=== PATIENT | male | born 1960 | race Caucasian/White ===

== ENCOUNTER 2024-06-17 10:02 | Emergency (ER) | payer BC ==
--- NOTE | 2024-06-17 11:48 | RAD REPORT ---
EXAM: XR Hand Left 3 View HISTORY: [facility] MAIN hand injury Bed Name: 15 COMPARISON: None TECHNIQUE: 3 radiographic views of the RIGHT hand submitted. FINDINGS: Mildly displaced fractures at the bases of the third, fourth, and fifth proximal phalanges. Some comminution noted and possible intra-articular extension along the base of the fifth digit proximal phalanx. Listhesis at the base of the first metatarsal. Mild degenerative changes throughout the carpus. Joint alignment is otherwise maintained. Pronounced soft tissue swelling especially along the dorsum of the hand. Mild scattered degenerative changes are present. IMPRESSION: Mildly displaced fractures at the raises of the third, fourth, and fifth proximal phalang es as above.
--- NOTE | 2024-06-17 12:17 | ER ---
Nurse's Notes [facility] Name: Vu Cruz Age: 63 yrs Sex: Male : 1960 Arrival Date: 06/17/2024 Time: 10:02 Bed 15 Private MD: Diagnosis: 3rd, 4th, and 5th Phalanx Fractures Presentation: 06/17 10:11 Chief complaint: Patient states: "I fell yesterday and twisted my hand". pt c/o aa5 pain/swelling/bruising to left hand. 10:11 Coronavirus screen: At this time, the client does not indicate any symptoms associated aa5 with coronavirus-19. Ebola Screen: Patient denies travel to an Ebola-affected area in the 21 days before illness onset. Initial Sepsis Screen: Does the patient meet any 2 criteria? No. Patient's initial sepsis screen is negative. Does the patient have a suspected source of infection? No. Patient's initial sepsis screen is negative. Risk Assessment: Do you want to hurt yourself or someone else? Patient reports no desire to harm self or others. Onset of symptoms was May 27, 2024. 10:11 Acuity: EDGARDO 4 aa5 10:11 Method Of Arrival: Ambulatory aa5 Triage Assessment: 10:10 General: Appears in no apparent distress. uncomfortable, Behavior is calm, cooperative. rs5 Injury Description: swelling noted to left hand. Historical: - Allergies: 10:11 PENICILLINS; aa5 - PMHx: 10:11 Hypertensive disorder; Diabetes mellitus; Kidney transplant; aa5 - Immunization history:: Adult Immunizations up to date. - Infectious Disease History:: Denies. - Social history:: Smoking status: Patient denies any tobacco usage or history of. Screenin:07 [facility] ED Fall Risk Assessment (Adult) History of falling in the last 3 months, rs5 including since admission Yes- single mechanical fall (1 pt) Confusion or Disorientation No (0 pts) Intoxicated or Sedated No (0 pts) Impaired Gait No (0 pts) Mobility Assist Device Used No (0 pt) Altered Elimination No (0 pt) Score/Fall Risk Level 0 - 2 = Low Risk Oriented to surroundings, Maintained a safe environment. Abuse screen: Denies threats or abuse. Nutritional screening: No deficits noted. Tuberculosis screening: No symptoms or risk factors identified. Assessment: 10:07 General: Appears in no apparent distress. uncomfortable, Behavior is calm, cooperative. rs5 10:07 Pain: Complains of pain in left hand Pain currently is 2 out of 10 on a pain scale. rs5 Quality of pain is described as aching. Neuro: Level of Consciousness is awake, alert, obeys commands, Oriented to person, place, time, situation. Cardiovascular: Patient's skin is warm and dry. Respiratory: Airway is patent Respiratory effort is even, unlabored, Respiratory pattern is regular, symmetrical. GI: Abdomen is round non-distended, Abd is soft and non tender X 4 quads. : No signs and/or symptoms were reported regarding the genitourinary system. EENT: No signs and/or symptoms were reported regarding the EENT system. Derm: Skin is intact, Skin is pink, warm \\T\\ dry. Musculoskeletal: Range of motion: limited in left hand Swelling present in left hand. 11:10 Reassessment: Patient and/or family updated on plan of care and expected duration. Pain rs5 level reassessed. Patient is alert, oriented x 3, equal unlabored respirations, skin warm/dry/pink. 12:05 Reassessment: Patient and/or family updated on plan of care and expected duration. Pain rs5 level reassessed. Patient is alert, oriented x 3, equal unlabored respirations, skin warm/dry/pink. to bedside for splint on left hand, pt tolerated procedure well, provider notified . Vital Signs: 10:11 BP 114 / 69; Pulse 65; Resp 19 S; Temp 97.5(TE); Pulse Ox 97% on R/A; Weight 70.76 kg aa5 (R); Height 5 ft. 10 in. (R); 12:22 BP 120 / 74; Pulse 70; Resp 16; Pulse Ox 99% on R/A; rs5 10:11 Body Mass Index 22.38 (70.76 kg, 177.8 cm) aa5 ED Course: 10:05 Patient arrived in ED. mg5 10:06 Sarabjit Mejia MD is Attending Physician. ec2 10:07 Patient has correct armband on for positive identification. Placed in gown. Bed in low rs5 position. Call light in reach. Side rails up X2. 10:07 No provider procedures requiring assistance completed. rs5 10:11 Arm band placed on Patient placed in an exam room, on a stretcher. aa5 10:12 Triage completed. aa5 10:14 Cesar Camargo, RN is Primary Nurse. rs5 10:54 Hand Left 3 View XRAY In Process Unspecified. EDMS 12:17 Errol Iniguez MD is Referral Physician. ec2 12:17 Referral Physician role handed off by Errol Iniguez MD ec2 12:20 Patient did not have IV access during this emergency room visit. rs5 Administered Medications: No medications were administered Medication: 10:10 VIS not applicable for this client. rs5 Outcome: 12:17 Discharge ordered by . ec2 12:20 Patient left the ED. rs5 12:20 Discharged to home ambulatory, rs5 12:20 Condition: stable rs5 12:20 Condition: stable 12:20 Discharge instructions given to patient, family, Instructed on discharge instructions, follow up and referral plans. Demonstrated understanding of instructions, follow-up care, Signatures: Dispatcher [employer] Serena Gardner RN RN Cesar Mark, RN RN antione5 Glenys Maza 5 Sarabjit Mejia MD MD ec2 Corrections: (The following items were deleted from the chart) 15:14 12:48 Patient left the ED. rs5 rs5
--- NOTE | 2024-06-17 12:17 | EDPHYS ---
Physician Documentation [facility] Name: Vu Cruz Age: 63 yrs Sex: Male : 1960 Arrival Date: 06/17/2024 Time: 10:02 Bed 15 Private MD: ED Physician Sarabjit Mejia HPI: 06/17 10:15 This 63 yrs old Male presents to ER via Ambulatory with complaints of Hand ec2 Injury. 10:15 Patient arrives today for evaluation of a left hand injury. Patient reports that ec2 yesterday he had fallen and injured his hand, states that he is having pain throughout the metacarpals as well as digits 1 through 5. Patient reports no LOC, no head strike, no head or neck pain.. Historical: - Allergies: 10:11 PENICILLINS; aa5 - PMHx: 10:11 Hypertensive disorder; Diabetes mellitus; Kidney transplant; aa5 - Immunization history:: Adult Immunizations up to date. - Infectious Disease History:: Denies. - Social history:: Smoking status: Patient denies any tobacco usage or history of. ROS: 10:15 Constitutional: as per hpi ec2 Exam: 10:15 Constitutional: GEN: NAD Head: atraumatic Eyes: EOMI Ears: External ears are ec2 normal. CV: regular rate LUNGS: no respiratory distress ABD: non-distended SKIN: no evidence of rashes MSK: Left hand with diffuse swelling throughout all metacarpals as well as all digits. Ecchymosis noted to the palm of the hand. No deformities present. Capillary refill intact throughout. Intact radial pulse. Vital Signs: 10:11 BP 114 / 69; Pulse 65; Resp 19 S; Temp 97.5(TE); Pulse Ox 97% on R/A; Weight 70.76 kg aa5 (R); Height 5 ft. 10 in. (R); 12:22 BP 120 / 74; Pulse 70; Resp 16; Pulse Ox 99% on R/A; rs5 10:11 Body Mass Index 22.38 (70.76 kg, 177.8 cm) aa5 MDM: 10:11 Medical Screening Exam initiated ec2 10:15 Data reviewed: vital signs. ED course: Patient arrives today for evaluation of a left ec2 hand injury. Examination remarkable for left hand findings as above. Will obtain radiograph. Differential includes contusion, fracture . 11:58 ED course: Hand x-ray shows third, fourth, fifth proximal phalanx fractures. Will place ec2 patient in a radial gutter and have him follow-up with orthopedic surgery.. 12:05 ED course: Patient lives near [place], [facility] he will follow-up orthopedic surgery ec2 there.. 06/17 10:15 Order name: Hand Left 3 View XRAY; Complete Time: 11:57 ec2 06/17 12:05 Order name: Ulnar Gutter splint; Complete Time: 12:26 ec2 Administered Medications: No medications were administered Disposition Summary: 06/17/24 12:17 Discharge Ordered Notes: Location: Home ec2 Condition: Stable ec2 Diagnosis - 3rd, 4th, and 5th Phalanx Fractures ec2 Followup: ec2 - With: Errol Iniguez MD - When: - Reason: Recheck today's complaints Followup: ec2 - With: Private Physician - When: - Reason: Recheck today's complaints Discharge Instructions: - Discharge Summary Sheet ec2 - Finger Fracture, Adult, [id number] ec2 Forms: - Medication Reconciliation Form ec2 - Antibiotic Education ec2 - Prescription Opioid Use ec2 - Patient Portal Instructions ec2 - Leadership Thank You Letter ec2 Signatures: Dispatcher [employer] Serena Gardner RN RN aa5 Cesar Camargo RN RN rs5 Sarabjit Mejia MD MD ec2 Corrections: (The following items were deleted from the chart) 12:05 11:58 Splint ordered. ec2 ec2
[2024-06-17 12:57] VITALS: BP 114/69; TEMP 97.5; O2SAT 97
== END 2024-06-17 12:48 | disposition home or self-care (01) ==
LOC: ER 10:02
DX: S62.613A Displaced fracture of proximal phalanx of left middle finger, initial encounter for closed fracture (principal); S62.615A Displaced fracture of proximal phalanx of left ring finger, initial encounter for closed fracture; S62.512A Displaced fracture of proximal phalanx of left thumb, initial encounter for closed fracture; W18.30XA Fall on same level, unspecified, initial encounter
CPT/HCPCS: 99282